=== PATIENT | female | born 1990 | race Caucasian/White ===

== ENCOUNTER 2019-10-16 13:54 | Observation (INO) | payer OTHER ==
[~2019-10-16] VITALS: Ht 156 cm; Wt 73.5 kg
[2019-10-16 14:27] VITALS: BP 104/65
== END 2019-10-16 15:55 | disposition home or self-care (01) ==
LOC: 4S 13:54
PROVIDERS: ADMIT Obstetrics & Gynecology; ATTEND Obstetrics & Gynecology
DX: O62.9 Abnormality of forces of labor, unspecified (principal); Z3A.37 37 weeks gestation of pregnancy; Z98.890 Other specified postprocedural states
CPT/HCPCS: 59025; 76811; G0378

== ENCOUNTER 2019-10-23 13:50 | Observation (INO) | payer OTHER ==
[~2019-10-23] VITALS: Ht 156 cm; Wt 73.9 kg
[2019-10-23 14:12] VITALS: BP 114/58
== END 2019-10-23 15:10 | disposition home or self-care (01) ==
LOC: 4S 13:50
PROVIDERS: ADMIT Obstetrics & Gynecology Obstetrics; ATTEND Obstetrics & Gynecology Obstetrics
DX: O36.5930 Maternal care for other known or suspected poor fetal growth, third trimester, not applicable or unspecified (principal); Z3A.36 36 weeks gestation of pregnancy
CPT/HCPCS: 59025; 76811; 81002; G0378

== ENCOUNTER 2019-10-27 13:35 | Inpatient (IN) | payer OTHER ==
[~2019-10-27] VITALS: Ht 156 cm; Wt 74.4 kg
[2019-10-27] MEDS ORDERED: PREN-217 PO (13:58)
[2019-10-27] MEDS ORDERED: OXYTOCIN 30 UNITS/LACT RINGERS 500 ML IV ONE (13:59)
[2019-10-27] MEDS ORDERED: RINGERS SOLUTION,LACTATED 1,000 ML IV PRN (13:59)
[2019-10-27] MEDS ORDERED: CITRIC ACID/SODIUM CITRATE 30 ML SOLUTION UDCUP PO PRN (14:00)
[2019-10-27] MEDS ORDERED: METHYLERGONOVINE MALEATE 0.2 MG/ML VIAL IM PRN (14:00)
[2019-10-27] MEDS ORDERED: METOCLOPRAMIDE HCL 5 MG/ML 2 ML VIAL IVP PRN (14:00)
[2019-10-27 14:04] VITALS: BP 105/60
[2019-10-27] MEDS ORDERED: MISOPROSTOL 50 MCG TABLET PO ONE (14:15)
[2019-10-27 14:29] LABS: BASOPHILS % (AUTO) 0.2 % (0.0-2.0); HEMATOCRIT 31.3 % (36-46); LYMPHOCYTES # (AUTO) 1.7 K/uL (1.0-4.8); LYMPHOCYTES % (AUTO) 24.9 % (22.0-44.0); MEAN CORPUSCULAR HEMOGLOBIN 25.9 pg (26.0-34.0); MEAN CORPUSCULAR VOLUME 81 fL (80-100); MONOCYTES # (AUTO) 0.5 K/uL (0.1-1.0); MONOCYTES % (AUTO) 6.9 % (2.0-9.0); NEUTROPHILS # (AUTO) 4.5 K/uL (1.8-7.7); PLATELET COUNT (AUTO) 255 K/uL (150-450); RED BLOOD CELL COUNT(AUTO) 3.86 MIL/uL (4.00-5.20); RED CELL DISTRIBUTION WIDTH 14.4 % (11.5-14.5)
[2019-10-27] MEDS ORDERED: RINGERS SOLUTION,LACTATED 1,000 ML IV ONE (14:31)
[2019-10-27] MEDS: RINGERS SOLUTION,LACTATED 1,000 ML IV SCH ×3 (15:16→22:51)
[2019-10-27] MEDS: FentaNYL CITRATE-PF 100 MCG/2 ML VIAL IVP PRN ×2 (17:19→18:17)
[2019-10-27] MEDS ORDERED: OXYGEN THERAPY IH SCH (20:00)
[2019-10-27] MEDS ORDERED: BUPIVACAINE HCL/PF 0.25% 10 ML VIAL ONE (20:07)
[2019-10-27] MEDS ORDERED: ROPIVACAINE HCL/PF 0.2% 100 ML ED ONE (20:07)
[2019-10-27] MEDS ORDERED: NALBUPHINE HCL 10 MG/ML VIAL IVP PRN (20:30)
[2019-10-27] MEDS ORDERED: DiphenhydrAMINE HCL 50 MG/ML VIAL IVP PRN (20:30)
[2019-10-27] MEDS ORDERED: ROPIVACAINE HCL/PF 0.2% 100 ML ED PRN (20:30)
[2019-10-27] MEDS ORDERED: ONDANSETRON HCL 4 MG/2 ML VIAL IVP PRN (20:30)
[2019-10-27] MEDS: ACETAMINOPHEN 325 MG TABLET PO PRN (23:31)
[2019-10-28] MEDS: RINGERS SOLUTION,LACTATED 1,000 ML IV SCH ×3 (02:09→11:05)
[2019-10-28] MEDS: ACETAMINOPHEN 325 MG TABLET PO PRN (03:30)
[2019-10-28] MEDS ORDERED: OXYTOCIN 30 UNITS/LACT RINGERS 500 ML IV ONE ×2 (09:06→12:51)
[2019-10-28] MEDS ORDERED: LIDOCAINE/PF 1% 30 ML VIAL ONE (09:36)
[2019-10-28] MEDS ORDERED: OxyCODONE HCL/ACETAMINOPHEN 5-325 MG TABLET PO PRN ×2 (13:00)
[2019-10-28] MEDS ORDERED: LIDOCAINE/PF 1% 30 ML VIAL INJ PRN (13:00)
[2019-10-28] MEDS ORDERED: BENZOCAINE 20%/MENTHOL 56 GM SPRAY CANISTER TP PRN (13:00)
[2019-10-28] MEDS ORDERED: LANOLIN 7 GM OINTMENT TP PRN (13:00)
[2019-10-28] MEDS ORDERED: GLYCERIN/WITCH HAZEL LEAF 40 PADS JAR TP PRN (13:00)
[2019-10-28] MEDS: IBUPROFEN 800 MG TABLET PO PRN (18:29)
[2019-10-28] MEDS: MAGNESIUM HYDROXIDE SUSPENSION 30 ML UDCUP PO PRN (20:27)
[2019-10-29] MEDS: IBUPROFEN 800 MG TABLET PO PRN ×2 (05:53→18:34)
[2019-10-29 06:51] LABS: BASOPHILS % (AUTO) 0.2 % (0.0-2.0); EOSINOPHILS % (AUTO) 1.2 % (1.0-6.0); HEMATOCRIT 30.6 % (36-46); HEMOGLOBIN 9.9 g/dL (12.0-16.0); LYMPHOCYTES # (AUTO) 3.1 K/uL (1.0-4.8); LYMPHOCYTES % (AUTO) 17.6 % (22.0-44.0); MEAN CORPUSCULAR HEMOGLOBIN 26.2 pg (26.0-34.0); MEAN CORPUSCULAR HGB CONC 32.5 G/dL (31.0-37.0); MEAN CORPUSCULAR VOLUME 81 fL (80-100); MONOCYTES # (AUTO) 0.8 K/uL (0.1-1.0); MONOCYTES % (AUTO) 4.4 % (2.0-9.0); NEUTROPHILS # (AUTO) 13.6 K/uL (1.8-7.7); NEUTROPHILS % (AUTO) 76.6 % (40.0-70.0); PLATELET COUNT (AUTO)-OB 207 K/uL (150-450); RED BLOOD CELL COUNT(AUTO) 3.79 MIL/uL (4.00-5.20); RED CELL DISTRIBUTION WIDTH 14.7 % (11.5-14.5)
[2019-10-30 06:27] LABS: BASOPHILS % (AUTO) 0.4 % (0.0-2.0); EOSINOPHILS % (AUTO) 1.3 % (1.0-6.0); HEMATOCRIT 28.3 % (36-46); HEMOGLOBIN 9.3 g/dL (12.0-16.0); LYMPHOCYTES # (AUTO) 3.2 K/uL (1.0-4.8); MEAN CORPUSCULAR HEMOGLOBIN 26.7 pg (26.0-34.0); MEAN CORPUSCULAR HGB CONC 32.8 G/dL (31.0-37.0); MEAN CORPUSCULAR VOLUME 81 fL (80-100); MONOCYTES # (AUTO) 0.6 K/uL (0.1-1.0); MONOCYTES % (AUTO) 4.9 % (2.0-9.0); NEUTROPHILS # (AUTO) 8.7 K/uL (1.8-7.7); NEUTROPHILS % (AUTO) 68.4 % (40.0-70.0); PLATELET COUNT (AUTO)-OB 193 K/uL (150-450); RED BLOOD CELL COUNT(AUTO) 3.49 MIL/uL (4.00-5.20); RED CELL DISTRIBUTION WIDTH 14.9 % (11.5-14.5)
[2019-10-30] MEDS: IBUPROFEN 800 MG TABLET PO PRN (08:10)
[2019-10-30] MEDS: MAGNESIUM HYDROXIDE SUSPENSION 30 ML UDCUP PO PRN (09:11)
[2019-10-30] MEDS ORDERED: IBUP-2070 PO (12:09)
[2019-10-30] MEDS ORDERED: FERR-89 PO (12:10)
== END 2019-10-30 14:30 | disposition home or self-care (01) | DRG 560 ==
LOC: OBSVTOIN 13:35 → 4S 13:35
PROVIDERS: ADMIT Obstetrics & Gynecology Obstetrics; ATTEND Obstetrics & Gynecology Obstetrics
PROC: 10D07Z6 Extraction of Products of Conception, Vacuum, Via Natural or Artificial Opening (ICD-10-PCS; principal; 2019-10-28)
PROC: 0KQM0ZZ Repair Perineum Muscle, Open Approach (ICD-10-PCS; 2019-10-28)
PROC: 3E0R3BZ Introduction of Anesthetic Agent into Spinal Canal, Percutaneous Approach (ICD-10-PCS; 2019-10-28)
PROC: 00HU33Z Insertion of Infusion Device into Spinal Canal, Percutaneous Approach (ICD-10-PCS; 2019-10-28)
DX: O76 Abnormality in fetal heart rate and rhythm complicating labor and delivery (principal); O70.1 Second degree perineal laceration during delivery; O69.82X0 Labor and delivery complicated by other cord entanglement, without compression, not applicable or unspecified; Z3A.39 39 weeks gestation of pregnancy; Z37.0 Single live birth
CPT/HCPCS: 86850; 86900; 86901; J2590; J2795; J3010; J3490; J7120